=== PATIENT | female | born 1985 | race African-American/Black ===

== ENCOUNTER 2023-01-03 19:23 | Inpatient (IN) | payer MEDICAID ==
[~2023-01-03] VITALS: Ht 157.5 cm; Wt 61.2 kg
[2023-01-03] MEDS ORDERED: SODIUM CHLORIDE 0.9% 1000ML 2,000 ML IV ONE (19:45)
[2023-01-03] MEDS ORDERED: SODIUM CHLORIDE 0.9% 1000ML 1,000 ML IV STA (19:48)
[2023-01-03 20:01] LABS: BASOPHILS # (AUTO) 0.1 (0.0-0.1); BASOPHILS % 0.3 % (0.0-1.0); EOSINOPHILS % 0.1 % (0.0-6.0); HEMATOCRIT 32.7 % (34.2-44.1); HEMOGLOBIN 10.1 g/dL (12.0-16.0); LYMPHOCYTES # (AUTO) 2.1 (1.0-3.2); LYMPHOCYTES % 10.7 % (18.0-39.1); MEAN CORPUSCULAR HGB CONC 30.9 g/dL (31-35); MEAN CORPUSCULAR VOLUME 80.9 fL (81-99); MONOCYTES # (AUTO) 1.2 (0.2-0.8); NEUTROPHILS % 82.5 % (38.7-80.0); PLATELET COUNT 697 x10e3/uL (140-360); RED BLOOD COUNT 4.04 x10e6/uL (3.6-5.1); RED CELL DISTRIBUTION WIDTH 18.2 % (11.7-14.4)
[2023-01-03 20:18] LABS: ALBUMIN/GLOBULIN RATIO 0.8 (0.8-2.0); ANION GAP 17.5 mmol/L (8-16); CALCIUM 10.1 mg/dL (8.4-10.2); CREATININE, SERUM 0.94 mg/dL (0.57-1.11); POTASSIUM 3.5 mmol/L (3.5-5.1)
[2023-01-03 20:21] LABS: LIPASE 16 U/L (8-78)
[2023-01-03 20:33] LABS: AMPHETAMINES SCREEN,URINE NEGATIVE (NEGATIVE); BENZODIAZEPINES SCREEN,URINE NEGATIVE (NEGATIVE); PHENCYCLIDINE SCREEN,URINE NEGATIVE (NEGATIVE)
[2023-01-03] MEDS ORDERED: ONDANSETRON HCL INJ 2MG/ML 2ML 2 MG/ML VIAL IV STA (20:44)
[2023-01-03 20:46] LABS: CLARITY,URINE SL CLOUDY (CLEAR); COLOR,URINE AMBER (YELLOW); KETONES,URINE NEGATIVE (NEGATIVE); LEUKOCYTE ESTERASE ,URINE NEGATIVE (NEGATIVE); NITRITE,URINE NEGATIVE (NEGATIVE); PROTEIN,URINE DIPSTICK >=300 (NEGATIVE); URINE UROBILINOGEN 0.2 mg/dL (0.2 - 1)
[2023-01-03] MEDS ORDERED: ONDANSETRON HCL INJ 2MG/ML 2ML 2 MG/ML VIAL ONE (20:46)
[2023-01-03 20:55] VITALS: PULSE 88; RESP 15; O2SAT 100
[2023-01-03 20:58] LABS: AMORPHOUS SEDIMENT,URINE MODERATE (FEW); BACTERIA,URINE MODERATE /HPF; EPITHELIAL CELLS,URINE MODERATE /LPF; WBC,URINE (MAN) 0-5 /HPF (0-5)
[2023-01-03 21:09] LABS: ABG HCO3 25 mmol/L (22-26); ABG PCO2 37 mmHg (35-45); ABG PH 7.43 (7.35-7.45); ABG PO2 87 mmHg (80-105); ABG TCO2 26
[2023-01-03] MEDS ORDERED: IOPAMIDOL 370 MG/ML 100 ML INFUS..BTL INJ ONE (22:26)
[2023-01-04] VITALS (7 sets, daily range): BP systolic 116–142; BP diastolic 78–93; PULSE 62–80; RESP 18; TEMP 98.3–99.1; O2SAT 97–100
[2023-01-04] MEDS: SODIUM CHLORIDE 0.9% 1000ML 1,000 ML IV SCH ×4 (00:45→22:53)
[2023-01-04] MEDS ORDERED: ACETAMINOPHEN 325 MG TAB PO ONE (01:00)
[2023-01-04 05:06] LABS: BASOPHILS % 0.2 % (0.0-1.0); EOSINOPHILS # (AUTO) 0.1 (0.0-0.4); EOSINOPHILS % 0.4 % (0.0-6.0); HEMATOCRIT 27.2 % (34.2-44.1); HEMOGLOBIN 8.1 g/dL (12.0-16.0); LYMPHOCYTES % 12.6 % (18.0-39.1); MEAN CORPUSCULAR HEMOGLOBIN 24.4 pg (28-32); MEAN CORPUSCULAR HGB CONC 29.8 g/dL (31-35); MEAN CORPUSCULAR VOLUME 81.9 fL (81-99); MONOCYTES % 6.2 % (4.4-11.3); NEUTROPHILS # (AUTO) 12.9 (2.1-6.9); PLATELET COUNT 578 x10e3/uL (140-360); RED BLOOD COUNT 3.32 x10e6/uL (3.6-5.1); RED CELL DISTRIBUTION WIDTH 18.5 % (11.7-14.4)
[2023-01-04 05:20] LABS: ALBUMIN/GLOBULIN RATIO 0.8 (0.8-2.0); ANION GAP 11.6 mmol/L (8-16); CALCIUM 8.1 mg/dL (8.4-10.2); CREATININE, SERUM 0.76 mg/dL (0.57-1.11); POTASSIUM 3.6 mmol/L (3.5-5.1)
[2023-01-04] MEDS ORDERED: ZOLOFT50 MG PO (13:19)
[2023-01-04] MEDS ORDERED: SEROQUEL100 MG PO (13:19)
[2023-01-04] MEDS: Morphine 4mg INJECTION 4 MG/ML INJ IV PRN ×2 (13:39→22:53)
[2023-01-04] MEDS: ONDANSETRON HCL INJ 2MG/ML 2ML 2 MG/ML VIAL IV PRN (22:53)
[2023-01-05] VITALS (8 sets, daily range): BP systolic 101–144; BP diastolic 57–91; PULSE 60–90; RESP 18–21; TEMP 97.7–98.4; O2SAT 99–100
[2023-01-05] MEDS: ONDANSETRON HCL INJ 2MG/ML 2ML 2 MG/ML VIAL IV PRN (04:45)
[2023-01-05] MEDS: Morphine 4mg INJECTION 4 MG/ML INJ IV PRN ×2 (04:46→15:36)
[2023-01-05 07:21] LABS: CREATINE KINASE 401 IU/L (29-168)
[2023-01-05] MEDS: CEFTRIAXONE 2 GM in SODIUM CHLORIDE 0.9% 100 ML IV SCH (12:39)
[2023-01-05] MEDS: SODIUM CHLORIDE 0.9% 1000ML 1,000 ML IV SCH ×2 (14:57→16:00)
[2023-01-05] MEDS ORDERED: ACETAMINOPHEN 325 MG TAB PO PRN (15:15)
[2023-01-05] MEDS ORDERED: POLYETHYLENE GLYCOL 3350 17 GM PACK PO PRN (15:15)
[2023-01-05] MEDS ORDERED: HYDRALAZINE HCL 20 MG/ML VIAL IV PRN (15:15)
[2023-01-05] MEDS: SERTRALINE HCL 50 MG TAB PO SCH (15:36)
[2023-01-05] MEDS: QUETIAPINE FUMARATE 100 MG TAB PO SCH (20:54)
[2023-01-06] VITALS (7 sets, daily range): BP systolic 102–141; BP diastolic 59–87; PULSE 64–86; RESP 14–20; TEMP 97.6–98.8; O2SAT 97–100
[2023-01-06] MEDS: SODIUM CHLORIDE 0.9% 1000ML 1,000 ML IV SCH ×3 (00:57→15:40)
[2023-01-06 05:48] LABS: BASOPHILS % 0.6 % (0.0-1.0); EOSINOPHILS # (AUTO) 0.2 (0.0-0.4); EOSINOPHILS % 3.7 % (0.0-6.0); HEMATOCRIT 24.8 % (34.2-44.1); HEMOGLOBIN 7.5 g/dL (12.0-16.0); LYMPHOCYTES # (AUTO) 2.4 (1.0-3.2); LYMPHOCYTES % 43.8 % (18.0-39.1); MEAN CORPUSCULAR HEMOGLOBIN 24.8 pg (28-32); MEAN CORPUSCULAR HGB CONC 30.2 g/dL (31-35); MEAN CORPUSCULAR VOLUME 81.8 fL (81-99); MONOCYTES # (AUTO) 0.3 (0.2-0.8); MONOCYTES % 6.1 % (4.4-11.3); NEUTROPHILS # (AUTO) 2.5 (2.1-6.9); NEUTROPHILS % 45.6 % (38.7-80.0); PLATELET COUNT 602 x10e3/uL (140-360); RED BLOOD COUNT 3.03 x10e6/uL (3.6-5.1); RED CELL DISTRIBUTION WIDTH 18.2 % (11.7-14.4); RETICULOCYTE % 1.3 % (0.8-2.2)
[2023-01-06 06:27] LABS: FERRITIN 17.15 ng/mL (4.63-204.00); THYROID STIMULATING HORMONE 0.614 uIU/mL (0.350-4.940)
[2023-01-06] MEDS: SERTRALINE HCL 50 MG TAB PO SCH (09:31)
[2023-01-06] MEDS: CEFTRIAXONE 2 GM in SODIUM CHLORIDE 0.9% 100 ML IV SCH (12:00)
[2023-01-06] MEDS: ONDANSETRON HCL INJ 2MG/ML 2ML 2 MG/ML VIAL IV PRN (13:47)
[2023-01-06] MEDS ORDERED: PROMETHAZINE 12.5MG/ NACL 0.9% 12.5 MG/50 ML BAG IV PRN (14:15)
[2023-01-06] MEDS ORDERED: ZIPRASIDONE 20 MG VIAL IM STA (14:17)
[2023-01-06] MEDS ORDERED: WATER STERILE 10 ML VIAL INJ ONE (15:00)
[2023-01-06 15:21] LABS: ALBUMIN 3.2 g/dL (3.5-5.0); ALBUMIN/GLOBULIN RATIO 0.8 (0.8-2.0); ANION GAP 14.5 mmol/L (8-16); CALCIUM 8.8 mg/dL (8.4-10.2); CREATININE, SERUM 0.75 mg/dL (0.57-1.11); POTASSIUM 3.5 mmol/L (3.5-5.1)
[2023-01-06] MEDS ORDERED: ONDANSETRON HCL 4 MG ORAL DISINTEGRATING TAB PO ONE (20:00)
[2023-01-06] MEDS ORDERED: LORAZEPAM INJ 2 MG/ML VIAL IM ONE (20:00)
[2023-01-06] MEDS ORDERED: HALOPERIDOL LACTATE 5 MG/ML VIAL IM ONE (20:00)
[2023-01-06 20:28] LABS: BASOPHILS % 0.2 % (0.0-1.0); EOSINOPHILS % 0.1 % (0.0-6.0); HEMATOCRIT 28.9 % (34.2-44.1); HEMOGLOBIN 8.8 g/dL (12.0-16.0); LYMPHOCYTES # (AUTO) 1.3 (1.0-3.2); LYMPHOCYTES % 16.4 % (18.0-39.1); MEAN CORPUSCULAR HEMOGLOBIN 24.6 pg (28-32); MEAN CORPUSCULAR HGB CONC 30.4 g/dL (31-35); MONOCYTES # (AUTO) 0.3 (0.2-0.8); MONOCYTES % 3.4 % (4.4-11.3); NEUTROPHILS # (AUTO) 6.5 (2.1-6.9); NEUTROPHILS % 79.4 % (38.7-80.0); PLATELET COUNT 544 x10e3/uL (140-360); RED BLOOD COUNT 3.57 x10e6/uL (3.6-5.1); RED CELL DISTRIBUTION WIDTH 18.1 % (11.7-14.4)
[2023-01-06 20:47] LABS: ALANINE AMINOTRANSFERASE 19 IU/L (0-55); ALBUMIN 3.3 g/dL (3.5-5.0); ALBUMIN/GLOBULIN RATIO 0.9 (0.8-2.0); ALKALINE PHOSPHATASE 49 IU/L (40-150); ANION GAP 11.4 mmol/L (8-16); BLOOD UREA NITROGEN 8 mg/dL (7-26); BUN/CREATININE RATIO 10 (6-25); CARBON DIOXIDE 26 mmol/L (22-29); CHLORIDE 108 mmol/L (98-107); CREATINE KINASE 353 IU/L (29-168); CREATININE, SERUM 0.77 mg/dL (0.57-1.11); GLUCOSE 118 mg/dL (74-118); POTASSIUM 3.4 mmol/L (3.5-5.1); SODIUM 142 mmol/L (136-145)
[2023-01-06] MEDS: QUETIAPINE FUMARATE 100 MG TAB PO SCH (21:00)
[2023-01-07] MEDS: SODIUM CHLORIDE 0.9% 1000ML 1,000 ML IV SCH
[2023-01-07 04:00] VITALS: BP 128/80; PULSE 70; RESP 20; TEMP 98.6; O2SAT 100
== END 2023-01-07 07:38 | disposition left against medical advice (07) | DRG 871 ==
LOC: ER 19:34 → ERHOLD 23:54 → MED/SURG3 01-04 12:57 → OBSVTOIN 01-05 13:27
PROVIDERS: ADMIT Internal Medicine; ATTEND Internal Medicine
PROC: 4A1 Measurement and Monitoring, Physiological Systems, Monitoring (ICD-10-PCS; principal; 2023-01-03)
DX: A41.9 Sepsis, unspecified organism (principal); G93.41 Metabolic encephalopathy; N39.0 Urinary tract infection, site not specified; E87.20 Acidosis, unspecified; F31.81 Bipolar II disorder; D75.839 Thrombocytosis, unspecified; F40.240 Claustrophobia; D50.9 Iron deficiency anemia, unspecified; E86.0 Dehydration; D25.9 Leiomyoma of uterus, unspecified; R11.2 Nausea with vomiting, unspecified; E11.9 Type 2 diabetes mellitus without complications; G47.00 Insomnia, unspecified; D72.829 Elevated white blood cell count, unspecified; R53.1 Weakness; F29 Unspecified psychosis not due to a substance or known physiological condition; Z72.0 Tobacco use; Z79.899 Other long term (current) drug therapy; Z90.49 Acquired absence of other specified parts of digestive tract
CPT/HCPCS: 36415; 70450; 71045; 74177; 80053; 80307; 81001; 82140; 82550; 82553; 82607; 82728; 82805; 82948; 83036; 83540; 83605; 83690; 84443; 84466; 84484; 84702; 85025; 85045; 87040; 87086; 93005; 94799; 99284; G0378; J0696; J1630; J2060; J2270; J2405; J2543; J2550; J3486; J7030; J7050; Q0162; Q9967

== ENCOUNTER 2023-02-12 10:28 | Emergency (ER) | payer MEDICAID, MEDICARE ==
[~2023-02-12] VITALS: Ht 157.5 cm; Wt 61.2 kg
[~2023-02-12 10:28] MED LIST: SEROQUEL100 MG PO; ZOLOFT50 MG PO
[2023-02-12] MEDS ORDERED: SODIUM CHLORIDE 0.9% 1000ML 1,000 ML IV STA (10:33)
[2023-02-12] MEDS ORDERED: LORAZEPAM INJ 2 MG/ML VIAL IV ONE (10:45)
[2023-02-12 10:48] LABS: BASOPHILS # (AUTO) 0.1 (0.0-0.1); BASOPHILS % 0.6 % (0.0-1.0); EOSINOPHILS # (AUTO) 0.1 (0.0-0.4); EOSINOPHILS % 0.8 % (0.0-6.0); HEMATOCRIT 36.3 % (34.2-44.1); HEMOGLOBIN 11.2 g/dL (12.0-16.0); LYMPHOCYTES # (AUTO) 2.4 (1.0-3.2); LYMPHOCYTES % 24.7 % (18.0-39.1); MEAN CORPUSCULAR HEMOGLOBIN 24.5 pg (28-32); MEAN CORPUSCULAR HGB CONC 30.9 g/dL (31-35); MEAN CORPUSCULAR VOLUME 79.4 fL (81-99); MONOCYTES # (AUTO) 0.7 (0.2-0.8); NEUTROPHILS # (AUTO) 6.5 (2.1-6.9); NEUTROPHILS % 66.6 % (38.7-80.0); PLATELET COUNT 489 x10e3/uL (140-360); RED BLOOD COUNT 4.57 x10e6/uL (3.6-5.1); RED CELL DISTRIBUTION WIDTH 21.9 % (11.7-14.4)
[2023-02-12 10:54] VITALS: O2SAT 100
[2023-02-12 10:58] LABS: BACTERIA,URINE FEW /HPF; CLARITY,URINE HAZY (CLEAR); COLOR,URINE YELLOW (YELLOW); EPITHELIAL CELLS,URINE FEW /LPF; KETONES,URINE NEGATIVE (NEGATIVE); LEUKOCYTE ESTERASE ,URINE NEGATIVE (NEGATIVE); NITRITE,URINE NEGATIVE (NEGATIVE); PROTEIN,URINE DIPSTICK 1+ (NEGATIVE); URINE UROBILINOGEN 1 mg/dL (0.2 - 1)
[2023-02-12 10:59] LABS: AMPHETAMINES SCREEN,URINE NEGATIVE (NEGATIVE); BENZODIAZEPINES SCREEN,URINE POSITIVE (NEGATIVE); PHENCYCLIDINE SCREEN,URINE NEGATIVE (NEGATIVE)
[2023-02-12 11:26] LABS: INR 0.95; PARTIAL THROMBOPLASTIN TIME 25.7 seconds (23.8-35.5); PROTHROMBIN TIME 13.2 seconds (11.9-14.5)
[2023-02-12 11:36] LABS: ALANINE AMINOTRANSFERASE 17 IU/L (0-55); ALBUMIN 4.5 g/dL (3.5-5.0); ALBUMIN/GLOBULIN RATIO 1.1 (0.8-2.0); ALKALINE PHOSPHATASE 55 IU/L (40-150); ANION GAP 17.4 mmol/L (8-16); BLOOD UREA NITROGEN 14 mg/dL (7-26); BUN/CREATININE RATIO 15 (6-25); CALCIUM 9.6 mg/dL (8.4-10.2); CARBON DIOXIDE 20 mmol/L (22-29); CHLORIDE 103 mmol/L (98-107); CREATINE KINASE 637 IU/L (29-168); CREATININE, SERUM 0.91 mg/dL (0.57-1.11); GLUCOSE 128 mg/dL (74-118); POTASSIUM 4.4 mmol/L (3.5-5.1); SODIUM 136 mmol/L (136-145)
[2023-02-12 11:56] LABS: THYROID STIMULATING HORMONE 0.883 uIU/mL (0.350-4.940)
[2023-02-12 12:01] LABS: SALICYLATE < 5.0 mg/dL (0-30)
== END 2023-02-12 13:56 | disposition home or self-care (01) ==
LOC: ER 10:34
DX: F25.9 Schizoaffective disorder, unspecified (principal); F31.89 Other bipolar disorder; F15.10 Other stimulant abuse, uncomplicated; D64.9 Anemia, unspecified; E11.9 Type 2 diabetes mellitus without complications; F41.9 Anxiety disorder, unspecified
CPT/HCPCS: 36415; 80053; 80307; 80320; 80329; 81001; 82550; 83735; 84443; 84484; 84702; 85025; 85610; 85730; 87086; 93005; 99285